=== PATIENT | male | born 1945 | race Caucasian/White ===

== ENCOUNTER 2018-01-18 17:05 | Emergency (ER) | payer MEDICARE, BC ==
[2018-01-18 17:21] VITALS: BP 130/83
--- NOTE | 2018-01-18 17:57 | UC ---
Respiratory Complaint HPI - HPI Summary HPI Summary: Started getting sick 6 days ago with aches, chills, fever up to 101F. Fever resolved after the first day, but developed nasal congestion, cough, and lots of mucus. Since then most symptoms are better, but dry cough is continuing, daughter is concerned. Has noticed wheezing at night as well. - History of Current Complaint Chief Complaint: UCRespiratory Stated Complaint: CHEST CONGESTION, AND COUGH Time Seen by Provider: 01/18/18 17:31 Hx Obtained From: Patient Onset/Duration: Gradual Onset, Lasting Weeks Timing: Constant Severity Initially: Moderate Severity Currently: Moderate Pain Intensity: 0 Character: Cough: Nonproductive Aggravating Factors: Deep Breaths, Recumbent Position Associated Signs And Symptoms: Positive: Fever, URI, Nasal Congestion - Allergies/Home Medications Allergies/Adverse Reactions: Allergies Allergy/AdvReac Type Severity Reaction Status Date / Time crab Allergy Facial Uncoded 01/18/18 17:21 Redness/Flushing PMH/Surg Hx/FS Hx/Imm Hx Previously Healthy: Yes - Surgical History Surgical History: None - Family History Known Family History: Positive: Hypertension - Social History Occupation: Retired Alcohol Use: None Substance Use Type: None Smoking Status (MU): Never Smoked Tobacco Review of Systems Constitutional: Negative Skin: Negative Eyes: Negative ENT: Negative Respiratory: Shortness Of Breath, Cough - + Cardiovascular: Negative Gastrointestinal: Negative Genitourinary: Negative Motor: Negative Neurovascular: Negative Musculoskeletal: Negative Neurological: Negative Psychological: Negative Is Patient Immunocompromised?: No All Other Systems Reviewed And Are Negative: Yes Physical Exam Triage Information Reviewed: Yes Appearance: Well-Appearing, No Pain Distress, Well-Nourished Vital Signs: Initial Vital Signs Temp 97.6 F 01/18/18 17:18 Pulse 91 01/18/18 17:18 Resp 18 01/18/18 17:18 BP 130/83 01/18/18 17:18 Pulse Ox 98 01/18/18 17:18 Vital Signs Reviewed: Yes Eye Exam: Normal Eyes: Positive: Conjunctiva Clear ENT: Positive: Normal ENT inspection, Nasal congestion Dental Exam: Normal Neck exam: Normal Neck: Positive: Supple Respiratory Exam: Normal Respiratory: Positive: Chest non-tender, Lungs clear, Normal breath sounds, No respiratory distress, No accessory muscle use Cardiovascular Exam: Normal Cardiovascular: Positive: RRR, No Murmur Musculoskeletal Exam: Normal Neurological Exam: Normal Psychological Exam: Normal Skin Exam: Normal Diagnostic Evaluation - Laboratory O2 Sat by Pulse Oximetry: 98 Respiratory Course/Dx - Differential Dx/Diagnosis Provider Diagnoses: Acute bronchitis Discharge - Discharge Plan Condition: Stable Disposition: HOME Prescriptions: Acetaminop/Codeine 30 MG TAB* [Tylenol/Codeine 30 MG TAB*] 1 - 2 tab PO BEDTIME PRN #15 tab MDD 2 PRN Reason: Cough Albuterol HFA INHALER* [Ventolin HFA Inhaler*] 1 - 2 puff INH Q4H PRN #1 mdi PRN Reason: wheeze, cough Benzonatate CAP* [Tessalon 100 MG CAP*] 100 mg PO TID #30 cap Patient Education Materials: Acute Bronchitis (ED) Referrals: Juan Gillette MD [Primary Care Provider] - Additional Instructions: You have an an infection or inflammation of the air passageways in your lungs. Symptoms usually include cough, low grade fever, shortness of breath, and wheezing. The cough usually persists for a couple of weeks, sometimes longer. We used to think antibiotics were necessary to treat bronchitis, but studies have shown that respiratory viruses cause the disease in the vast majority of cases. Like head colds, most cases of bronchitis get better without antibiotics. We may prescribe antibiotics if we believe bacteria are damaging your airways, or if there's high risk the bronchitis will worsen into pneumonia (such as for individuals with emphysema or other lung disease). Increase your fluid intake. A cool mist humidifier may make your lungs more comfortable. An expectorant (cough medicine that loosens phlegm) can help. If you smoke, STOP!!! Recovery from bronchitis can be somewhat slow, but you should not have any significant worsening or new fevers. As long as you can breathe easily and you continue to have steady improvement, it is not important how many days it takes you to get better. Call or return if you develop increasing fever, shortness of breath, chest pain , bloody sputum, or otherwise worsen. If you have not improved at all after several days, contact your primary care physician or return here. INHALED BRONCHODILATORS: You have received a prescription for an inhaled bronchodilator -- a medication which stimulates the airways in the lung to dilate. This improves the flow of air in asthma, bronchitis, and emphysema. These medicines have some similarity to adrenaline, and can cause similar side effects: chiragkiness, racing heart, and a sense of nervousness. These side effects can be reduced with the use of a spacer and usually decrease with time. Use 1-2 puffs up to every 4 hours as needed for wheezing or tightness in your chest. It may be helpful to use preventatively, such as before bedtime or before going outside into cold air. IF YOU FIND THAT YOU ARE CONSISTENTLY NEEDING THE INHALER MORE THAN 6 TIMES PER DAY, PLEASE CALL OR RETURN FOR FURTHER EVALUATION. TESSALON: You have received a prescription for Tessalon (benzonatate). This is a non- narcotic medicine for relief of cough. It usually works in about 15-20 minutes and lasts around four hours. When they work, they are usually helpful with a lingering cough at the end of an illness. If you do not find them helpful now, wait several days and try again, as they may help your cough later on. Tessalon should be swallowed. They should not be chewed or dissolved in the mouth (this can produce temporary numbing of the mouth and choking can occur ). If you develop any adverse effects such as wheezing, shortness of breath, hives, rash, itching, or lightheadedness, please return at once.
== END 2018-01-18 17:59 | disposition home or self-care (01) ==
LOC: UCEAST 17:05
DX: J20.9 Acute bronchitis, unspecified (principal); R06.02 Shortness of breath
CPT/HCPCS: 99202; G0463

== ENCOUNTER 2018-11-06 10:44 | Emergency (ER) | payer MEDICARE, BC, OTHER ==
[2018-11-06 10:51] VITALS: BP 135/80
[2018-11-06] MEDS ORDERED: Tetan/Diph/Pertus SYR(Tdap)* 0.5 ML SYR(BOOSTRIX) use SYR IM ONE (11:17)
--- NOTE | 2018-11-06 11:23 | UC ---
Skin Complaint HPI - HPI Summary HPI Summary: 73-year-old male presents for scalp laceration. States early this morning he stood up and hit the top of his head on the bottom of a wooden cabinet. Bleeding was controlled with direct pressure prior to arrival. Denies any loss of consciousness, headache, dizziness, vertigo, or visual disturbances. Unknown tetanus status. - History of Current Complaint Chief Complaint: UCLaceration Time Seen by Provider: 11/06/18 11:01 Stated Complaint: HEAD LAC Pain Intensity: 2 - Allergy/Home Medications Allergies/Adverse Reactions: Allergies Allergy/AdvReac Type Severity Reaction Status Date / Time crab Allergy Facial Uncoded 11/06/18 10:52 Redness/Flushing Home Medications: Home Medications NK [No Home Medications Reported] 11/06/18 [History Confirmed 11/06/18] PMH/Surg Hx/FS Hx/Imm Hx Previously Healthy: Yes - Denies significant PMH - Surgical History Surgical History: Yes Surgery Procedure, Year, and Place: hernia - Family History Known Family History: Positive: Hypertension - Social History Occupation: Retired Lives: With Family Alcohol Use: None Substance Use Type: None Smoking Status (MU): Never Smoked Tobacco Review of Systems All Other Systems Reviewed And Are Negative: Yes Skin: Positive: Other - See HPI Eyes: Negative: Blurred Vision, Diplopia, Photophobia Neurological: Negative: Headache, Weakness, Paresthesia, Numbness Is Patient Immunocompromised?: No Physical Exam - Summary Physical Exam Summary: GENERAL APPEARANCE: Well developed, well nourished, alert and cooperative, and appears to be in no acute distress. EYES: PERRL, EOM intact. Vision is grossly intact. NECK: Neck supple, non-tender. CARDIAC: Normal S1 and S2. No S3, S4 or murmurs. Rhythm is regular. There is no peripheral edema, cyanosis or pallor. Extremities are warm and well perfused. Capillary refill is less than 2 seconds. LUNGS: Clear to auscultation and percussion without rales, rhonchi, wheezing or diminished breath sounds. NEUROLOGICAL: CN II-XII intact. Strength and sensation symmetric and intact throughout. Reflexes 2+ throughout. Cerebellar testing normal. SKIN: 2 cm x 0.4 cm superficial skin avulsion to scalp. Triage Information Reviewed: Yes Vital Signs: Initial Vital Signs Temp 98.6 F 11/06/18 10:48 Pulse 81 12/22/18 10:48 Resp 18 11/06/18 10:48 BP 135/80 11/06/18 10:48 Pulse Ox 98 11/06/18 10:48 Vital Signs Reviewed: Yes Course/Dx - Course Course Of Treatment: 73-year-old male presents for scalp laceration. States early this morning he stood up and hit the top of his head on the bottom of a wooden cabinet. Bleeding was controlled with direct pressure prior to arrival. Denies any loss of consciousness, headache, dizziness, vertigo, or visual disturbances. Unknown tetanus status. Exam revealed a superficial 1.5 cm x 0.4 cm skin avulsion with bleeding controlled. Wound was cleansed. No apparent necessary. Dressing was applied. Tetanus updated. Wound care and warning symptoms were reviewed with the patient. Verbalizes understanding and agrees with plan of care. - Diagnoses Provider Diagnosis: Skin avulsion Discharge - Sign-Out/Discharge Documenting (check all that apply): Patient Departure All imaging exams completed and their final reports reviewed: No Studies - Discharge Plan Condition: Stable Disposition: HOME Patient Education Materials: Skin Tear (ED) Referrals: Juan Gillette MD [Primary Care Provider] - If Needed Additional Instructions: You have a superficial avulsion of your scalp that does not require sutures. We did clean the wound and apply a dressing. Clean the wound at least once a day with a mild soap and water. Apply some antibiotic ointment such as Bacitracin to the wound and cover with a clean gauze dressing. This dressing should be changed at least once a day or any time it becomes wet or soiled. Your tetanus was updated in the clinic today. Be sure to contact your primary care provider to let them know so that your records can be updated. Watch for signs of infection including fever greater than 100.5 F, redness that spreads, swelling of the hand, pain that is not managed with pain medication, numbness or tingling in the hand or fingers, or pus draining from the wound. Seek immediate medical attention should any of these occur. - Billing Disposition and Condition Condition: STABLE Disposition: Home
== END 2018-11-06 11:25 | disposition home or self-care (01) ==
LOC: UCEAST 10:44
DX: S01.01XA Laceration without foreign body of scalp, initial encounter (principal); Z91.013 Allergy to seafood; W22.09XA Striking against other stationary object, initial encounter; Y92.9 Unspecified place or not applicable
CPT/HCPCS: 90471; 90715; 99212; G0463